=== PATIENT | male | born 1990 ===

== ENCOUNTER 2018-03-09 18:56 | Inpatient (IN) | payer OTHER ==
[2018-03-09] MEDS ORDERED: Sodium Chloride 0.9% 1,000 ML IV STA (20:29)
[2018-03-09] MEDS ORDERED: Multivitamin (MVI) 10 ML, Thiamine 100 MG, Folic Acid 1 MG in Dextrose 5%/0.45% NS 1,00... IV ONE (20:40)
--- NOTE | 2018-03-09 20:57 | ED PDOC ---
HPI: Abdomen Time Seen by Provider: 03/09/18 20:07 Chief Complaint (Nursing): GI Problem Chief Complaint (Provider): GI Problem History Per: Patient History/Exam Limitations: no limitations Onset/Duration Of Symptoms: Days Current Symptoms Are (Timing): Still Present Location Of Pain/Discomfort: Epigastric Associated Symptoms: Nausea, Vomiting Additional Complaint(s): Jagdish Troncoso is a 28 year old male with no past medical history who is presenting to the ED for evaluation of abdominal pain associated with vomiting blood, and blood in the stool onset yesterday. Patient states that yesterday and today he noted bright red blood in vomitus and red and black blood in stool yesterday. He also complains of epigastric pain and a nosebleed today which has since resolved. Patient admits to drinking alcohol yesterday but states that he has not had any today. He reports that he drinks alcohol every day and also comp lains of headache and dizziness associated with this, onset yesterday. PMD: none provided Past Medical History Reviewed: Historical Data, Nursing Documentation, Vital Signs Vital Signs: Last Vital Signs Temp 99.8 F H 03/09/18 19:34 Pulse 106 H 03/09/18 19:34 Resp 16 03/09/18 19:34 BP 148/83 03/09/18 19:34 Pulse Ox 97 03/09/18 19:34 - Medical History PMH: No Chronic Diseases - Surgical History Surgical History: No Surg Hx - Family History Family History: States: Unknown Family Hx - Social History Current smoker - smoking cessation education provided: No Alcohol: Other (drinks every day) Drugs: Denies - Home Medications Home Medications: Ambulatory Orders Medication Instructions Recorded RX: No Known Home Med 03/09/18 - Allergies Allergies/Adverse Reactions: Allergies Allergy/AdvReac Type Severity Reaction Status Date / Time No Known Allergies Allergy Verified 03/09/18 19:39 Review of Systems ROS Statement: Except As Marked, All Systems Reviewed And Found Negative Gastrointestinal: Positive for: Vomiting, Abdominal Pain, Hematochezia, Hematemesis Neurological: Positive for: Headache, Dizziness Physical Exam - Reviewed Nursing Documentation Reviewed: Yes Vital Signs Reviewed: Yes - Physical Exam Appears: Positive for: Non-toxic, No Acute Distress Head Exam: Positive for: ATRAUMATIC, NORMAL INSPECTION, NORMOCEPHALIC Skin: Positive for: Normal Color, Warm, Dry. Negative for: Rash Eye Exam: Positive for: EOMI, Normal appearance, PERRL ENT: Positive for: Normal ENT Inspection Neck: Positive for: Normal, Painless ROM, Supple Cardiovascular/Chest: Positive for: Tachycardia. Negative for: Murmur Respiratory: Positive for: Normal Breath Sounds. Negative for: Respiratory Distress Gastrointestinal/Abdominal: Positive for: Soft, Tenderness (epigastric tenderness) Back: Positive for: Normal Inspection. Negative for: L CVA Tenderness, R CVA Tenderness, Vertebral Tenderness Rectal: Positive for: Normal Exam, Stool Is Heme: (negative, no blood noted on exam). 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 Negative for: Motor/Sensory Deficits - Laboratory Results Result Diagrams: 03/09/18 23:09 03/09/18 20:49 - ECG O2 Sat by Pulse Oximetry: 97 (RA) Pulse Ox Interpretation: Normal - Critical Care Total Time (In Min): 30 Medical Decision Making Medical Decision Making: Time: 20:30 Impression: abdominal pain, vomiting blood, bloody stool Differentials: GI bleed, alcoholic gastritis, pancreatitis, possible liver cirrhosis, other forms of coagulopathy esophageal varices, Lottie-Mullins, PUD Plan: --Blood Type and Screen --CT Abdomen/Pelvis --Alcohol Serum --Ammonia --CMP --Lipase --Troponin --CBC --Coags --Dextrose IV --IV Fluids --Protonix 80 mg IVP --Zofran 4 mg IV -octreotide IV -rocepine IV 23:14 CT Abd w/ IV Findings: Lower thorax Unremarkable. Liver There is diffuse hepatic hypoattenuation compatible with fatty infiltration. There are geographic areas, which demonstrates low attenuation in the rest of the liver. There are several cysts noted in the liver. Gallbladder and bile ducts Unremarkable. Pancreas Unremarkable. No gross lesion or ductal dilatation. Spleen Unremarkable. Adrenals Unremarkable. No mass. Kidneys and ureters Unremarkable. No hydronephrosis. No solid mass. Vasculature Unremarkable. No aortic aneurysm. Bowel No obstruction. There is severe circumferential wall thickening involving duodenum with C loop consistent with duodenitis. Small fat-containing umbilical hernia is seen. Appendix Normal appendix. Peritoneum Unremarkable. No free fluid. No free air. Lymph nodes Unremarkable. No enlarged lymph nodes. Bladder Unremarkable. Reproductive Prostate gland is unremarkable. Bones No acute fracture. Other Findings None. Impression Fatty liver. Small fat-containing umbilical hernia. Evidence of duodenitis. [id number] Galvan for admission. [address] Padilla who agrees with the management. --- Scribe Attestation: Documented by Oliva Boles, acting as a scribe for To Manley MD. Provider Scribe Attestation: All medical record entries made by the Scribe were at my direction and personally dictated by me. I have reviewed the chart and agree that the record accurately reflects my personal performance of the history, physical exam, medical decision making, and the department course for this patient. I have also personally directed, reviewed, and agree with the discharge instructions and disposition. Disposition - Clinical Impression Clinical Impression: Gastrointestinal hemorrhage - Patient ED Disposition Is Patient to be Admitted: Yes Discussed With : Adalgisa Galvan Doctor Will See Patient In The: ED Counseled Patient/Family Regarding: Studies Performed, Diagnosis - Disposition Disposition Time: 23:00 Condition: CRITICAL - Pt Status Changed To: Hospital Disposition Of: Inpatient - Admit Certification Admit to Inpatient:: After my assessment, the patient will require hospitalization for at least two midnights. This is because of the severity of symptoms shown, intensity of services needed, and/or the medical risk in this patient being treated as an outpatient. - POA Present On Arrival: None
[2018-03-09 21:49] LABS: INR 1.6; PARTIAL THROMBOPLASTIN TIME 42.1 Seconds (25.6-37.1)
[2018-03-09 21:54] LABS: PROTHROMBIN TIME 17.9 Seconds (9.8-13.1)
[2018-03-09 22:00] LABS: ALB/GLOB RATIO 1.1 (1.0-2.1); ALBUMIN 5.1 g/dL (3.5-5.0); ALT/SGPT 86 U/L (21-72); AST/SGOT 282 U/L (17-59); BLOOD UREA NITROGEN 5 mg/dl (9-20); CALCIUM 9.9 mg/dL (8.4-10.2); GFR NON-AFRICAN AMERICAN > 60; LIPASE 364 U/L (23-300)
[2018-03-09] MEDS ORDERED: Iohexol 300 100 ML IJ ONE (22:07)
[2018-03-09] MEDS ORDERED: Sodium Chloride 0.9% 50 ML IV ONE (22:07)
[2018-03-09] MEDS ORDERED: Potassium CL 10 MEQ/50 ML 50 ML IVPB ONE (22:32)
[2018-03-09 23:13] LABS: BASO % 0.5 % (0.0-2.0); EOS % 0.2 % (0.0-4.0); HEMOGLOBIN 13.6 g/dL (12.0-18.0); LYMPH # 0.6 K/uL (1.0-4.3); MEAN CELL VOLUME 94.2 fl (80.0-94.0); MEAN CORPUSCULAR HEMOGLOBIN 32.3 pg (27.0-31.0); MEAN CORPUSCULAR HGB CONC 34.3 g/dL (33.0-37.0); MONO # 0.5 K/uL (0.0-0.8); MONO % 10.4 % (0.0-10.0); NEUT # 3.6 K/uL (1.8-7.0); NEUT % 76.9 % (50.0-75.0); RBC 4.19 Mil/uL (4.40-5.90); RED CELL DISTRIBUTION WIDTH 12.3 % (11.5-14.5); WHITE BLOOD COUNT 4.7 K/uL (4.8-10.8)
[2018-03-09 23:22] LABS: VENOUS BLOOD GAS BASE EXCESS 1.5 mmol/L (0.0-2.0); VENOUS BLOOD GAS PCO2 34 mmHg (40-60); VENOUS BLOOD GAS PO2 45 mm/Hg (30-55); VENOUS BLOOD PH 7.47 (7.32-7.43)
[2018-03-09] MEDS: Pantoprazole 40 MG in Sodium Chloride 0.9% 100 ML IVPB SCH (23:23)
[2018-03-09] MEDS ORDERED: Potassium CL 10 MEQ/50 ML 50 ML ONE (23:54)
[2018-03-10 00:37] LABS: MEAN PLATELET VOLUME 8.3 fl (7.2-11.7)
--- NOTE | 2018-03-10 01:01 | CP.PCM.HP ---
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 Last vomiting was yesterday evening. Patient reports he had some nose bleed today but not currently. Reports some dizziness but denies LOC or blurry vision. Denies any abdominal pain, chest pain, dyspnea, headache, fever or chills. Patient reports he drinks 4-6 glasses ( ~3-4 oz in each glass) of Whiskey every weekends and sometimes 1-2 glasses during weekdays for the last 7 years. Denies any taking any NSAIDS or aspirin. Denies any hx GI bleed or liver issues in the past. ROS: all 12 systems reviewed and negative except as mentioned in HPI PMD: none PMHx: alcohol use disorder PSHx: denies Social hx: significant EtOH use, denies smoking cigarettes or illicit drug uses Family hx: Denies any family hx GI cancer. Allergies: NKDA Medications: none cash person: Tran Bah (friend): [phone] Present on Admission - Present on Admission Any Indicators Present on Admission: No Review of Systems - Review of Systems Review of Systems: ROS: all 12 systems reviewed and negative except as mentioned in HPI Past Patient History - Past Social History Alcohol: Other (drinks every day) Drugs: Denies - PSYCHIATRIC Hx Substance Use: No - SURGICAL HISTORY Hx Surgeries: No Meds Allergies/Adverse Reactions: Allergies Allergy/AdvReac Type Severity Reaction Status Date / Time No Known Allergies Allergy Verified 03/09/18 19:39 Physical Exam - Constitutional Appears: Non-toxic, No Acute Distress - Head Exam Head Exam: ATRAUMATIC, NORMAL INSPECTION, NORMOCEPHALIC - Eye Exam Eye Exam: EOMI, Normal appearance. absent: Scleral icterus - ENT Exam ENT Exam: Mucous Membranes Dry (with dried blood staining the teeth), Normal Oropharynx Additional comments: Nostril: Dried blood in B/L nostril, no active bleeding seen. Ears: clear ear canal B/L, TM normal - Neck Exam Neck exam: Positive for: Full Rom, Normal Inspection - Respiratory Exam Respiratory Exam: Clear to Auscultation Bilateral, NORMAL BREATHING PATTERN. absent: Rhonchi, Wheezes - Cardiovascular Exam Cardiovascular Exam: REGULAR RHYTHM, +S1, +S2 - GI/Abdominal Exam GI & Abdominal Exam: Normal Bowel Sounds, Soft, Tenderness (Mild epigastric tenderness, No rebound tenderness or guarding.). absent: Guarding, Rebound - Extremities Exam Extremities exam: Positive for: normal capillary refill, pedal pulses present. Negative for: calf tenderness, pedal edema - Neurological Exam Neurological exam: Alert, Oriented x3 - Psychiatric Exam Psychiatric exam: Normal Affect, Normal Mood - Skin Additional comments: petechiae seen on abdomen and B/L lower extremities. Results - Vital Signs Recent Vital Signs: Last Vital Signs Temp 98.8 F 03/10/18 00:44 Pulse 96 H 03/10/18 00:44 Resp 18 03/10/18 00:44 BP 138/83 03/10/18 00:44 Pulse Ox 100 03/10/18 00:44 - Labs Result Diagrams: 03/09/18 23:09 03/09/18 20:49 Labs: Laboratory Results - last 24 hr 03/09/18 03/09/18 03/09/18 20:49 20:49 20:49 WBC RBC Hgb Hct MCV MCH MCHC RDW Plt Count MPV Neut % (Auto) Lymph % (Auto) [place] % (Auto) Eos % (Auto) Baso % (Auto) Neut # (Auto) Lymph # (Auto) [place] # (Auto) Eos # (Auto) Baso # (Auto) PT 17.9 H INR 1.6 APTT 42.1 H pO2 VBG pH VBG pCO2 VBG HCO3 VBG Total CO2 VBG O2 Sat (Calc) VBG Base Excess VBG Potassium Glucose Lactate FiO2 Sodium 137 Potassium 3.1 L Chloride 87 L Carbon Dioxide 23 Anion Gap 30 H BUN 5 L Creatinine 0.5 L Est GFR ( Amer) > 60 Est GFR (Non-Af Amer) > 60 Random Glucose 129 H Calcium 9.9 Total Bilirubin 2.0 H AST 282 H ALT 86 H Alkaline Phosphatase 213 H Ammonia Troponin I 0.0140 Total Protein 9.8 H Albumin 5.1 H Globulin 4.7 H Albumin/Globulin Ratio 1.1 Lipase 364 H Venous Blood Potassium Stool Occult Blood Alcohol, Quantitative < 10 Blood Type O POSITIVE Blood Type Confirm Antibody Screen Negative BBK History Checked No verified bt 03/09/18 03/09/18 03/09/18 21:00 21:19 21:44 WBC RBC Hgb Hct MCV MCH MCHC RDW Plt Count MPV Neut % (Auto) Lymph % (Auto) [place] % (Auto) Eos % (Auto) Baso % (Auto) Neut # (Auto) Lymph # (Auto) [place] # (Auto) Eos # (Auto) Baso # (Auto) PT INR APTT pO2 VBG pH VBG pCO2 VBG HCO3 VBG Total CO2 VBG O2 Sat (Calc) VBG Base Excess VBG Potassium Glucose Lactate FiO2 Sodium Potassium Chloride Carbon Dioxide Anion Gap BUN Creatinine Est GFR ( Amer) Est GFR (Non-Af Amer) Random Glucose Calcium Total Bilirubin AST ALT Alkaline Phosphatase Ammonia 65 H Troponin I Total Protein Albumin Globulin Albumin/Globulin Ratio Lipase Venous Blood Potassium Stool Occult Blood Positive H Alcohol, Quantitative Blood Type Blood Type Confirm O POSITIVE Antibody Screen BBK History Checked 03/09/18 03/09/18 23:09 23:17 WBC 4.7 L RBC 4.19 L Hgb 13.6 Hct 39.5 MCV 94.2 H MCH 32.3 H MCHC 34.3 RDW 12.3 Plt Count 70 L MPV 8.3 Neut % (Auto) 76.9 H Lymph % (Auto) 12.0 L Den[place] % (Auto) 10.4 H Eos % (Auto) 0.2 Baso % (Auto) 0.5 Neut # (Auto) 3.6 Lymph # (Auto) 0.6 L [place] # (Auto) 0.5 Eos # (Auto) 0.0 Baso # (Auto) 0.0 PT INR APTT pO2 45 VBG pH 7.47 H VBG pCO2 34 L VBG HCO3 25.7 VBG Total CO2 25.7 VBG O2 Sat (Calc) 85.3 H VBG Base Excess 1.5 VBG Potassium 2.9 L Glucose 126 H Lactate 1.5 FiO2 21.0 Sodium 133.0 Potassium Chloride 92.0 L Carbon Dioxide Anion Gap BUN Creatinine Est GFR ( Amer) Est GFR (Non-Af Amer) Random Glucose Calcium Total Bilirubin AST ALT Alkaline Phosphatase Ammonia Troponin I Total Protein Albumin Globulin Albumin/Globulin Ratio Lipase Venous Blood Potassium 2.9 L Stool Occult Blood Alcohol, Quantitative Blood Type Blood Type Confirm Antibody Screen BBK History Checked - Imaging and Cardiology CT scan - abdomen Additional comment: CT Abd w/ IV Findings: Lower thorax Unremarkable. Liver There is diffuse hepatic hypoattenuation compatible with fatty infiltration. There are geographic areas, which demonstrates low attenuation in the rest of the liver. There are several cysts noted in the liver. Gallbladder and bile ducts Unremarkable. Pancreas Unremarkable. No gross lesion or ductal dilatation. Spleen Unremarkable. Adrenals Unremarkable. No mass. Kidneys and ureters Unremarkable. No hydronephrosis. No solid mass. Vasculature Unremarkable. No aortic aneurysm. Bowel No obstruction. There is severe circumferential wall thickening involving duodenum with C loop consistent with duodenitis. Small fat-containing umbilical hernia is seen. Appendix Normal appendix. Peritoneum Unremarkable. No free fluid. No free air. Lymph nodes Unremarkable. No enlarged lymph nodes. Bladder Unremarkable. Reproductive Prostate gland is unremarkable. Bones No acute fracture. Other Findings None. Impression Fatty liver. Small fat-containing umbilical hernia. Evidence of duodenitis. Assessment & Plan - Assessment and Plan (Free Text) Assessment: 28 year old German speaking male with PMHx of alcohol use disorder presented to [facility] ED with complaints of 7-10 episodes of bloody (bright red blood) emesis associated with one episode of bloody stool mixed with dark and bright red blood yesterday. Patient reports +nose bleed and dizziness started today. Patient is admitted for upper GI bleed and duodenitis. Plan: Upper GI bleed with duodenitis -Admit to ICU -Slight tachycardia otherwise stable vitals -CT A/P showed lower thorax unremarkable. There is severe circumferential wall thickening involving duodenum with C loop consistent with duodenitis. -GI consult: Dr. Padilla -s/p Protonix 80 mg IVPB, Octreotide 50 mcg IV and Cefriaxone 1 gm IPVB -Continuous infusion of protonix @8mg/hr -c/w Octreotide infusion @50 mcg/hour -IVFs LR @125 cc/hr -H&H 13.6/39.5 -Monitor symptoms -Cel[place] Bleeding Score: 2 points -f/u AM labs Elevated liver enzymes -Likely secondary to alcohol use disorder -F/u gallbladder US -f/u hepatitis panel Hyperammonemia -Mild, ammonia level 65 -AAO x3 -Likely secondary to GI bleed -f/u GI recommendation Thrombocytopenia -Platelet 70 -f/u AM CBC DVT prophylaxis -SCDs Diet -NPO Patient seen, examined and plan d/w with Dr. Cole Chavez, pgy-2
[2018-03-10] MEDS ORDERED: cefTRIAXone (Rocephin) 1 gm Inj ONE (01:19)
[2018-03-10 01:25] VITALS: BMI 28.2
[2018-03-10] MEDS: Lactated Ringer's 1,000 ML IV SCH ×2 (02:04→17:18)
[2018-03-10] MEDS: Pantoprazole 40 MG in Sodium Chloride 0.9% 100 ML IVPB SCH ×4 (02:44→21:37)
[2018-03-10 05:29] LABS: HEMOGLOBIN 13.2 g/dL (12.0-18.0); MEAN CELL VOLUME 94.9 fl (80.0-94.0); MEAN CORPUSCULAR HEMOGLOBIN 32.2 pg (27.0-31.0); MEAN CORPUSCULAR HGB CONC 33.9 g/dL (33.0-37.0); RBC 4.09 Mil/uL (4.40-5.90); RED CELL DISTRIBUTION WIDTH 12.6 % (11.5-14.5); WHITE BLOOD COUNT 3.3 K/uL (4.8-10.8)
[2018-03-10 05:51] LABS: BLOOD UREA NITROGEN 3 mg/dl (9-20); CALCIUM 8.4 mg/dL (8.4-10.2); GFR NON-AFRICAN AMERICAN > 60
--- NOTE | 2018-03-10 07:55 | CARD ---
APPROVED REPORT Date of service: 03/09/2018 EKG Measurement Heart [id number] ID [id number] <Conclusion> Sinus tachycardia Prolonged QT Abnormal ECG
[2018-03-10] MEDS: Potassium Chloride 20 mEq 100 ML IVPB SCH ×2 (08:58→10:37)
--- NOTE | 2018-03-10 11:25 | CP.CCUPN ---
<Di Figueroa - Last Filed: 03/10/18 12:19> CCU Subjective - Physician Review Subjective (Free Text): 03/10/18 11:32 This is 28 y/o M with PMH of alcohol use disorder admitted to ICU for evaluation and treatment of upper GI bleed. - Patient was seen and examined this morning at bedside, NAD. Patient reports no pain, bright red blood was seen around mouth. denies any nausea, vomiting or diarrhea this morning. VS: Afebrile, HR 100s, BP stable 123/63, Spo2 >95% RA, RR 15 ROS: No other pertinent negs or positives on 10+ system review. EXAM: HEENT: no icterus, no gaze preference, Pupils equal and reactive b/l, bright red blood was seen around mouth NECK: No JVD visible, supple, carotids equal upstroke bilat/no bruit CHEST:CTBL HEART: S1 and S2, RRR, No JVD ABD: soft/NT/ND, Hyperactive BS, no guarding, no organomegaly EXT: no LE edema, no calf tenderness or palpable cords, distal pulses intact and symmetrical NEURO: no focal motor weakness, radiator specialist II-XII grossly intact SKIN: no rashes, warm and dry LABS: WBC: 3.3 H/H: 13.2/38.8 Plt: 27 PT/PTT/INR: 17.9/42.1/1.6 CMP: Significant for K+ 3.2, Cl 95 AST/ALT/ALP: 282/86/213 Ammonia 65 Lipase 364 FOBT: + stool VBG: Reviewed CT Abd/Pelvis: Fatty liver, Small fat-containing umbilical hernia, Evidence of duodenitis. IMPRESSION/MAJOR PROBLEMS Upper GI bleed, active Thrombocytopenia Transaminitis Elevated Coag Elevated Lipase Elevated ammonia, not encephalopathic Alcohol use disorder Hypokalemia Plan: - Transfuse 1 U plt and 2 U FFP, CBC and Coag in am - Start Thiamine, Folic acid, and Lactulose - C/w Protonix, IVF, NPO and Zofran PRN - Replete potassium as needed, Follow up Mg and Phos , elevated lipase possibly due to vomiting, CMP in AM - Monitor mental status, ammonia in am - Follow up Abdo U/S to r/o liver pathology, f/u Hepatitis panel - WA protocol - Follow up GI recommendations - Monitor VS Case discussed with ICU Attending 03/10/18 12:19 CCU Objective - Vital Signs / Intake & Output Vital Signs (Last 4 hours): Vital Signs Temp Pulse Resp BP Pulse Ox 03/10/18 10:00 101 H 15 123/67 96 03/10/18 08:00 98.4 F 95 H 15 127/67 95 Intake and Output (Last 8hrs): Intake & Output 03/09/18 03/10/18 03/10/18 22:59 06:59 14:59 Intake Total 950 475 Output Total 150 650 Balance 800 -175 Weight 175 lb 176 lb 3.2 oz Intake: IV 780 375 Intake, Piggyback 110 100 Oral 0 TPN/PPN 60 Output: Urine 150 650 Urine, Voided 150 650 Other: # Voids Urine, Voided 1 # Bowel Movements 0 - Medications Active Medications: Active Medications Generic Name Dose Route Start Last Admin Trade Name Freq PRN Reason Stop Dose Admin Pantoprazole Sodium 40 mg/ 100 mls @ 20 mls/hr 03/09/18 22:30 03/10/18 08:07 Sodium Chloride IVPB 20 mls/hr 5XD TITA Administration 8 MG/HR Octreotide Acetate 1,250 mcg/ 252.5 mls @ 10.1 mls/hr 03/09/18 23:30 03/10/18 02:05 Sodium Chloride IV 10.1 mls/hr .Q24H TITA Administration 50 MCG/HR Lactated Ringer's 1,000 mls @ 125 mls/hr 03/10/18 01:00 03/10/18 02:04 Lactated Ringer's IV 125 mls/hr .Q8H TITA Administration Potassium Chloride 100 mls @ 50 mls/hr 03/10/18 08:00 03/10/18 10:37 Potassium Chloride 20 Meq/100 Ml IVPB 03/10/18 11:59 50 mls/hr Q2 TITA Administration Ondansetron HCl 4 mg 03/10/18 00:53 Zofran Inj IVP Q6H PRN Nausea/Vomiting - Patient Studies Lab Studies: Lab Studies 03/10/18 03/10/18 03/09/18 Range/Units 04:20 04:20 23:17 WBC 3.3 L (4.8-10.8) K/uL RBC 4.09 L (4.40-5.90) Mil/uL Hgb 13.2 (12.0-18.0) g/dL Hct 38.8 (35.0-51.0) % MCV 94.9 H (80.0-94.0) fl MCH 32.2 H (27.0-31.0) pg MCHC 33.9 (33.0-37.0) g/dL RDW 12.6 (11.5-14.5) % Plt Count 23 L* D (130-400) K/uL MPV (7.2-11.7) fl Neut % (Auto) (50.0-75.0) % Lymph % (Auto) (20.0-40.0) % Coleman % (Auto) (0.0-10.0) % Eos % (Auto) (0.0-4.0) % Baso % (Auto) (0.0-2.0) % Neut # (Auto) (1.8-7.0) K/uL Lymph # (Auto) (1.0-4.3) K/uL Coleman # (Auto) (0.0-0.8) K/uL Eos # (Auto) (0.0-0.7) K/uL Baso # (Auto) (0.0-0.2) K/uL PT (9.8-13.1) Seconds INR APTT (25.6-37.1) Seconds pO2 45 (30-55) mm/Hg VBG pH 7.47 H (7.32-7.43) VBG pCO2 34 L (40-60) mmHg VBG HCO3 25.7 mmol/L VBG Total CO2 25.7 (22-28) mmol/L VBG O2 Sat (Calc) 85.3 H (40-65) % VBG Base Excess 1.5 (0.0-2.0) mmol/L VBG Potassium 2.9 L (3.6-5.2) mmol/L Glucose 126 H (75-110) mg/dL Lactate 1.5 (0.7-2.1) mmol/L FiO2 21.0 % Sodium 136 133.0 (132-148) mmol/l Potassium 3.2 L (3.6-5.0) MMOL/L Chloride 95 L 92.0 L (98-107) mmol/L Carbon Dioxide 24 (22-30) mmol/L Anion Gap 20 (10-20) BUN 3 L (9-20) mg/dl Creatinine 0.5 L (0.8-1.5) mg/dl Est GFR ( Amer) > 60 Est GFR (Non-Af Amer) > 60 Random Glucose 175 H (75-110) mg/dL Calcium 8.4 (8.4-10.2) mg/dL Total Bilirubin (0.2-1.3) mg/dl AST (17-59) U/L ALT (21-72) U/L Alkaline Phosphatase (38-126) U/L Ammonia (16-60) umo/L Troponin I (0.00-0.120) ng/mL Total Protein (6.3-8.2) G/DL Albumin (3.5-5.0) g/dL Globulin (2.2-3.9) gm/dL Albumin/Globulin Ratio (1.0-2.1) Lipase (23-300) U/L Venous Blood Potassium 2.9 L (3.6-5.2) mmol/L Stool Occult Blood (NEGATIVE) Alcohol, Quantitative (0-10) mg/dl Blood Type Blood Type Confirm Antibody Screen BBK History Checked 03/09/18 03/09/18 03/09/18 Range/Units 23:09 21:44 21:19 WBC 4.7 L (4.8-10.8) K/uL RBC 4.19 L (4.40-5.90) Mil/uL Hgb 13.6 (12.0-18.0) g/dL Hct 39.5 (35.0-51.0) % MCV 94.2 H (80.0-94.0) fl MCH 32.3 H (27.0-31.0) pg MCHC 34.3 (33.0-37.0) g/dL RDW 12.3 (11.5-14.5) % Plt Count 70 L (130-400) K/uL MPV 8.3 (7.2-11.7) fl Neut % (Auto) 76.9 H (50.0-75.0) % Lymph % (Auto) 12.0 L (20.0-40.0) % Coleman % (Auto) 10.4 H (0.0-10.0) % Eos % (Auto) 0.2 (0.0-4.0) % Baso % (Auto) 0.5 (0.0-2.0) % Neut # (Auto) 3.6 (1.8-7.0) K/uL Lymph # (Auto) 0.6 L (1.0-4.3) K/uL Coleman # (Auto) 0.5 (0.0-0.8) K/uL Eos # (Auto) 0.0 (0.0-0.7) K/uL Baso # (Auto) 0.0 (0.0-0.2) K/uL PT (9.8-13.1) Seconds INR APTT (25.6-37.1) Seconds pO2 (30-55) mm/Hg VBG pH (7.32-7.43) VBG pCO2 (40-60) mmHg VBG HCO3 mmol/L VBG Total CO2 (22-28) mmol/L VBG O2 Sat (Calc) (40-65) % VBG Base Excess (0.0-2.0) mmol/L VBG Potassium (3.6-5.2) mmol/L Glucose (75-110) mg/dL Lactate (0.7-2.1) mmol/L FiO2 % Sodium (132-148) mmol/l Potassium (3.6-5.0) MMOL/L Chloride (98-107) mmol/L Carbon Dioxide (22-30) mmol/L Anion Gap (10-20) BUN (9-20) mg/dl Creatinine (0.8-1.5) mg/dl Est GFR ( Amer) Est GFR (Non-Af Amer) Random Glucose (75-110) mg/dL Calcium (8.4-10.2) mg/dL Total Bilirubin (0.2-1.3) mg/dl AST (17-59) U/L ALT (21-72) U/L Alkaline Phosphatase (38-126) U/L Ammonia 65 H (16-60) umo/L Troponin I (0.00-0.120) ng/mL Total Protein (6.3-8.2) G/DL Albumin (3.5-5.0) g/dL Globulin (2.2-3.9) gm/dL Albumin/Globulin Ratio (1.0-2.1) Lipase (23-300) U/L Venous Blood Potassium (3.6-5.2) mmol/L Stool Occult Blood (NEGATIVE) Alcohol, Quantitative (0-10) mg/dl Blood Type Blood Type Confirm O POSITIVE Antibody Screen BBK History Checked 03/09/18 03/09/18 03/09/18 Range/Units 21:00 20:49 20:49 WBC (4.8-10.8) K/uL RBC (4.40-5.90) Mil/uL Hgb (12.0-18.0) g/dL Hct (35.0-51.0) % MCV (80.0-94.0) fl MCH (27.0-31.0) pg MCHC (33.0-37.0) g/dL RDW (11.5-14.5) % Plt Count (130-400) K/uL MPV (7.2-11.7) fl Neut % (Auto) (50.0-75.0) % Lymph % (Auto) (20.0-40.0) % Coleman % (Auto) (0.0-10.0) % Eos % (Auto) (0.0-4.0) % Baso % (Auto) (0.0-2.0) % Neut # (Auto) (1.8-7.0) K/uL Lymph # (Auto) (1.0-4.3) K/uL Coleman # (Auto) (0.0-0.8) K/uL Eos # (Auto) (0.0-0.7) K/uL Baso # (Auto) (0.0-0.2) K/uL PT 17.9 H (9.8-13.1) Seconds INR 1.6 APTT 42.1 H (25.6-37.1) Seconds pO2 (30-55) mm/Hg VBG pH (7.32-7.43) VBG pCO2 (40-60) mmHg VBG HCO3 mmol/L VBG Total CO2 (22-28) mmol/L VBG O2 Sat (Calc) (40-65) % VBG Base Excess (0.0-2.0) mmol/L VBG Potassium (3.6-5.2) mmol/L Glucose (75-110) mg/dL Lactate (0.7-2.1) mmol/L FiO2 % Sodium (132-148) mmol/l Potassium (3.6-5.0) MMOL/L Chloride (98-107) mmol/L Carbon Dioxide (22-30) mmol/L Anion Gap (10-20) BUN (9-20) mg/dl Creatinine (0.8-1.5) mg/dl Est GFR ( Amer) Est GFR (Non-Af Amer) Random Glucose (75-110) mg/dL Calcium (8.4-10.2) mg/dL Total Bilirubin (0.2-1.3) mg/dl AST (17-59) U/L ALT (21-72) U/L Alkaline Phosphatase (38-126) U/L Ammonia (16-60) umo/L Troponin I (0.00-0.120) ng/mL Total Protein (6.3-8.2) G/DL Albumin (3.5-5.0) g/dL Globulin (2.2-3.9) gm/dL Albumin/Globulin Ratio (1.0-2.1) Lipase (23-300) U/L Venous Blood Potassium (3.6-5.2) mmol/L Stool Occult Blood Positive H (NEGATIVE) Alcohol, Quantitative (0-10) mg/dl Blood Type O POSITIVE Blood Type Confirm Antibody Screen Negative BBK History Checked No verified bt 03/09/18 Range/Units 20:49 WBC (4.8-10.8) K/uL RBC (4.40-5.90) Mil/uL Hgb (12.0-18.0) g/dL Hct (35.0-51.0) % MCV (80.0-94.0) fl MCH (27.0-31.0) pg MCHC (33.0-37.0) g/dL RDW (11.5-14.5) % Plt Count (130-400) K/uL MPV (7.2-11.7) fl Neut % (Auto) (50.0-75.0) % Lymph % (Auto) (20.0-40.0) % Coleman % (Auto) (0.0-10.0) % Eos % (Auto) (0.0-4.0) % Baso % (Auto) (0.0-2.0) % Neut # (Auto) (1.8-7.0) K/uL Lymph # (Auto) (1.0-4.3) K/uL Coleman # (Auto) (0.0-0.8) K/uL Eos # (Auto) (0.0-0.7) K/uL Baso # (Auto) (0.0-0.2) K/uL PT (9.8-13.1) Seconds INR APTT (25.6-37.1) Seconds pO2 (30-55) mm/Hg VBG pH (7.32-7.43) VBG pCO2 (40-60) mmHg VBG HCO3 mmol/L VBG Total CO2 (22-28) mmol/L VBG O2 Sat (Calc) (40-65) % VBG Base Excess (0.0-2.0) mmol/L VBG Potassium (3.6-5.2) mmol/L Glucose (75-110) mg/dL Lactate (0.7-2.1) mmol/L FiO2 % Sodium 137 (132-148) mmol/l Potassium 3.1 L (3.6-5.0) MMOL/L Chloride 87 L (98-107) mmol/L Carbon Dioxide 23 (22-30) mmol/L Anion Gap 30 H (10-20) BUN 5 L (9-20) mg/dl Creatinine 0.5 L (0.8-1.5) mg/dl Est GFR ( Amer) > 60 Est GFR (Non-Af Amer) > 60 Random Glucose 129 H (75-110) mg/dL Calcium 9.9 (8.4-10.2) mg/dL Total Bilirubin 2.0 H (0.2-1.3) mg/dl AST 282 H (17-59) U/L ALT 86 H (21-72) U/L Alkaline Phosphatase 213 H (38-126) U/L Ammonia (16-60) umo/L Troponin I 0.0140 (0.00-0.120) ng/mL Total Protein 9.8 H (6.3-8.2) G/DL Albumin 5.1 H (3.5-5.0) g/dL Globulin 4.7 H (2.2-3.9) gm/dL Albumin/Globulin Ratio 1.1 (1.0-2.1) Lipase 364 H (23-300) U/L Venous Blood Potassium (3.6-5.2) mmol/L Stool Occult Blood (NEGATIVE) Alcohol, Quantitative < 10 (0-10) mg/dl Blood Type Blood Type Confirm Antibody Screen BBK History Checked Laboratory Results - last 24 hr 03/09/18 03/09/18 03/09/18 20:49 20:49 20:49 WBC RBC Hgb Hct MCV MCH MCHC RDW Plt Count MPV Neut % (Auto) Lymph % (Auto) Coleman % (Auto) Eos % (Auto) Baso % (Auto) Neut # (Auto) Lymph # (Auto) Coleman # (Auto) Eos # (Auto) Baso # (Auto) PT 17.9 H INR 1.6 APTT 42.1 H pO2 VBG pH VBG pCO2 VBG HCO3 VBG Total CO2 VBG O2 Sat (Calc) VBG Base Excess VBG Potassium Glucose Lactate FiO2 Sodium 137 Potassium 3.1 L Chloride 87 L Carbon Dioxide 23 Anion Gap 30 H BUN 5 L Creatinine 0.5 L Est GFR ( Amer) > 60 Est GFR (Non-Af Amer) > 60 Random Glucose 129 H Calcium 9.9 Total Bilirubin 2.0 H AST 282 H ALT 86 H Alkaline Phosphatase 213 H Ammonia Troponin I 0.0140 Total Protein 9.8 H Albumin 5.1 H Globulin 4.7 H Albumin/Globulin Ratio 1.1 Lipase 364 H Venous Blood Potassium Stool Occult Blood Alcohol, Quantitative < 10 Blood Type O POSITIVE Blood Type Confirm Antibody Screen Negative BBK History Checked No verified bt 03/09/18 03/09/18 03/09/18 21:00 21:19 21:44 WBC RBC Hgb Hct MCV MCH MCHC RDW Plt Count MPV Neut % (Auto) Lymph % (Auto) Coleman % (Auto) Eos % (Auto) Baso % (Auto) Neut # (Auto) Lymph # (Auto) Coleman # (Auto) Eos # (Auto) Baso # (Auto) PT INR APTT pO2 VBG pH VBG pCO2 VBG HCO3 VBG Total CO2 VBG O2 Sat (Calc) VBG Base Excess VBG Potassium Glucose Lactate FiO2 Sodium Potassium Chloride Carbon Dioxide Anion Gap BUN Creatinine Est GFR ( Amer) Est GFR (Non-Af Amer) Random Glucose Calcium Total Bilirubin AST ALT Alkaline Phosphatase Ammonia 65 H Troponin I Total Protein Albumin Globulin Albumin/Globulin Ratio Lipase Venous Blood Potassium Stool Occult Blood Positive H Alcohol, Quantitative Blood Type Blood Type Confirm O POSITIVE Antibody Screen BBK History Checked 03/09/18 03/09/18 03/10/18 23:09 23:17 04:20 WBC 4.7 L 3.3 L RBC 4.19 L 4.09 L Hgb 13.6 13.2 Hct 39.5 38.8 MCV 94.2 H 94.9 H MCH 32.3 H 32.2 H MCHC 34.3 33.9 RDW 12.3 12.6 Plt Count 70 L 23 L* D MPV 8.3 Neut % (Auto) 76.9 H Lymph % (Auto) 12.0 L Coleman % (Auto) 10.4 H Eos % (Auto) 0.2 Baso % (Auto) 0.5 Neut # (Auto) 3.6 Lymph # (Auto) 0.6 L Coleman # (Auto) 0.5 Eos # (Auto) 0.0 Baso # (Auto) 0.0 PT INR APTT pO2 45 VBG pH 7.47 H VBG pCO2 34 L VBG HCO3 25.7 VBG Total CO2 25.7 VBG O2 Sat (Calc) 85.3 H VBG Base Excess 1.5 VBG Potassium 2.9 L Glucose 126 H Lactate 1.5 FiO2 21.0 Sodium 133.0 Potassium Chloride 92.0 L Carbon Dioxide Anion Gap BUN Creatinine Est GFR ( Amer) Est GFR (Non-Af Amer) Random Glucose Calcium Total Bilirubin AST ALT Alkaline Phosphatase Ammonia Troponin I Total Protein Albumin Globulin Albumin/Globulin Ratio Lipase Venous Blood Potassium 2.9 L Stool Occult Blood Alcohol, Quantitative Blood Type Blood Type Confirm Antibody Screen BBK History Checked 03/10/18 04:20 WBC RBC Hgb Hct MCV MCH MCHC RDW Plt Count MPV Neut % (Auto) Lymph % (Auto) Coleman % (Auto) Eos % (Auto) Baso % (Auto) Neut # (Auto) Lymph # (Auto) Coleman # (Auto) Eos # (Auto) Baso # (Auto) PT INR APTT pO2 VBG pH VBG pCO2 VBG HCO3 VBG Total CO2 VBG O2 Sat (Calc) VBG Base Excess VBG Potassium Glucose Lactate FiO2 Sodium 136 Potassium 3.2 L Chloride 95 L Carbon Dioxide 24 Anion Gap 20 BUN 3 L Creatinine 0.5 L Est GFR ( Amer) > 60 Est GFR (Non-Af Amer) > 60 Random Glucose 175 H Calcium 8.4 Total Bilirubin AST ALT Alkaline Phosphatase Ammonia Troponin I Total Protein Albumin Globulin Albumin/Globulin Ratio Lipase Venous Blood Potassium Stool Occult Blood Alcohol, Quantitative Blood Type Blood Type Confirm Antibody Screen BBK History Checked Critical Care Progress Note - Nutrition Nutrition: Nutrition Category Date Time Status NPO Diet [DIET] Diets 03/09/18 Breakfast Active <Ray Pool - Last Filed: 03/10/18 14:13> CCU Subjective - Physician Review Subjective (Free Text): Attestation: Patient seen and examined at the bedside with Resident Dr. Roseline Figueroa; and I agree with his outline of plans and management documented above and below, reflecting my review of all applicable clinical data, and participation in the care of the patient throughout the day in ICU; today, March 10, 2018.
--- NOTE | 2018-03-10 11:49 | CT ---
Date of service: 03/09/2018 PROCEDURE: CT Abdomen and Pelvis with contrast HISTORY: epigastric pain vomiting COMPARISON: None. TECHNIQUE: Contrast dose: 95 mL Omnipaque 300 Radiation dose: Total exam DLP = 579.04 mGy-cm. This CT exam was performed using one or more of the following dose reduction techniques: Automated exposure control, adjustment of the mA and/or kV according to patient size, and/or use of iterative reconstruction technique. FINDINGS: LOWER THORAX: Unremarkable. LIVER: Mild hepatomegaly. Diffusely diminished attenuation of the liver consistent with fatty infiltration. Circumscribed but irregularly-shaped area of decreased attenuation adjacent to the gallbladder fossa measuring roughly 3.8 x 2.2 cm but difficult to measure due to its irregular shape. This may represent additional focal fatty infiltration. There is also a low-attenuation rounded lesion 1.3 cm in diameter in the dome of the right hepatic lobe. Nonspecific. No biliary dilatation. Smooth contour. GALLBLADDER AND BILE DUCTS: Unremarkable. PANCREAS: Unremarkable. No gross lesion or ductal dilatation. SPLEEN: Unremarkable. ADRENALS: Unremarkable. No mass. KIDNEYS AND URETERS: Unremarkable. No hydronephrosis. No solid mass. VASCULATURE: Unremarkable. No aortic aneurysm. No abdominal aortic atherosclerotic calcification. There are probable small varices seen adjacent to the gastric cardia and also suspected varices in the right subhepatic space/paracolic gutter region. These are curvilinear enhancing structures. The findings are suspicious for portal hypertension with varices. There are no retroperitoneal varices identified. No evidence of esophageal varices on this examination. BOWEL: Nonspecific circumferential mural thickening of the ascending colon and hepatic flexure consistent with nonspecific colitis. The remainder of the colon shows no evidence of mural thickening. Scattered colonic diverticula. No evidence of diverticulitis. No bowel obstruction. APPENDIX: Normal appendix. PERITONEUM: Unremarkable. No free fluid. No free air. LYMPH NODES: Shotty subcentimeter retroperitoneal lymph nodes, nonspecific. BLADDER: Unremarkable. REPRODUCTIVE: Normal prostate BONES: No acute fracture. OTHER FINDINGS: None. IMPRESSION: Hepatomegaly. Fatty infiltration of the liver. Areas of likely focal fatty infiltration superimposed upon generalized fatty infiltration, with circumscribed borders and traversing vessels identified in regions of this suspected focal fatty infiltration. This could be evaluated with magnetic resonance imaging if desired. Additional nonspecific low-attenuation lesion in the dome of the right hepatic lobe, 1.3 cm. Again, this could represent focal fatty infiltration. No biliary dilatation. Suspected varices adjacent to the gastric cardia and also in the right pericolic gutter region. This raises suspicion of portal hypertension. No evidence of portal venous thrombosis. Nonspecific colitis involving the ascending colon and hepatic flexure. No other significant abnormality. The preliminary findings for this examination were reported by [facility] at 11:14 p.m. on 03/09/2018. There is discordance of this report with the preliminary findings. The presence of suspected varices was not described in the preliminary report of this examination. Nonspecific colitis involving the ascending colon and hepatic flexure was not described in the preliminary report of this examination. Mural thickening of the duodenum was described in the preliminary report of this examination. This is not felt to be present in this examination.
[2018-03-10] MEDS ORDERED: Thiamine 100 mg/ml Inj IM ONE (11:55)
[2018-03-10 12:29] LABS: HEPATITIS B SURFACE AG Negative (NEGATIVE)
[2018-03-10 12:35] LABS: HEPATITIS A IGM NEGATIVE (NEGATIVE); HEPATITIS B CORE AB NEGATIVE (NEGATIVE)
[2018-03-10 12:46] LABS: HEPATITIS C ANTIBODY NEGATIVE (NEGATIVE)
[2018-03-10 17:03] LABS: BASO % 0.4 % (0.0-2.0); EOS % 0.9 % (0.0-4.0); LYMPH # 0.5 K/uL (1.0-4.3); LYMPH % 14.6 % (20.0-40.0); MEAN CELL VOLUME 94.5 fl (80.0-94.0); MEAN CORPUSCULAR HEMOGLOBIN 32.1 pg (27.0-31.0); MEAN CORPUSCULAR HGB CONC 33.9 g/dL (33.0-37.0); MEAN PLATELET VOLUME 8.9 fl (7.2-11.7); MONO # 0.3 K/uL (0.0-0.8); MONO % 8.4 % (0.0-10.0); NEUT # 2.7 K/uL (1.8-7.0); NEUT % 75.7 % (50.0-75.0); NRBC % 0.1 % (0.0-0.0); RBC 4.06 Mil/uL (4.40-5.90); RED CELL DISTRIBUTION WIDTH 12.5 % (11.5-14.5); WHITE BLOOD COUNT 3.6 K/uL (4.8-10.8)
--- NOTE | 2018-03-10 17:50 | US ---
Date of service: 03/10/2018 HISTORY: cirrhosis COMPARISON: March 09, 2018. CT abdomen and pelvis. TECHNIQUE: Sonographic evaluation of the abdomen. FINDINGS: LIVER: Measures 20.8 cm. Hepatopedal blood flow. Fatty infiltration manifest ultrasonographically as increased echogenicity of the liver parenchyma. No mass. No intrahepatic bile duct dilatation. Findings identified on recent CT scan are not apparent on the current study. GALLBLADDER: Unremarkable. No gallstones. Trace pericholecystic fluid identified. COMMON BILE DUCT: Measures 5.7 mm. No stones. No dilatation. PANCREAS: Unremarkable as visualized. No mass. No ductal dilatation. RIGHT KIDNEY: Measures 5.2 x 12.8cm. Normal echogenicity. No calculus, mass, or hydronephrosis. LEFT KIDNEY: Measures 6.4 x 13.2cm. Normal echogenicity. No calculus, mass, or hydronephrosis. SPLEEN: Normal in size and contour. No mass. AORTA: No aneurysmal dilatation. IVC: Unremarkable. OTHER FINDINGS: None. IMPRESSION: Hepatomegaly, hepatic steatosis. Nonvisualization of findings on recent CT scan in the liver.
[2018-03-10 20:35] LABS: HEMOGLOBIN 13.1 g/dL (12.0-18.0); MEAN CORPUSCULAR HEMOGLOBIN 31.9 pg (27.0-31.0); MEAN CORPUSCULAR HGB CONC 33.6 g/dL (33.0-37.0); RBC 4.12 Mil/uL (4.40-5.90); RED CELL DISTRIBUTION WIDTH 12.8 % (11.5-14.5); WHITE BLOOD COUNT 3.3 K/uL (4.8-10.8)
[2018-03-10] MEDS ORDERED: Potassium Chloride 20 mEq ER Tab PO ONE (21:26)
[2018-03-11 00:12] LABS: BASO % 0.7 % (0.0-2.0); EOS # 0.1 K/uL (0.0-0.7); EOS % 1.6 % (0.0-4.0); HEMOGLOBIN 13.2 g/dL (12.0-18.0); LYMPH # 0.6 K/uL (1.0-4.3); LYMPH % 17.5 % (20.0-40.0); MEAN CELL VOLUME 94.3 fl (80.0-94.0); MEAN CORPUSCULAR HEMOGLOBIN 31.9 pg (27.0-31.0); MEAN CORPUSCULAR HGB CONC 33.8 g/dL (33.0-37.0); MEAN PLATELET VOLUME 8.7 fl (7.2-11.7); MONO # 0.3 K/uL (0.0-0.8); MONO % 10.4 % (0.0-10.0); NEUT # 2.3 K/uL (1.8-7.0); NEUT % 69.8 % (50.0-75.0); NRBC % 0.1 % (0.0-0.0); RBC 4.14 Mil/uL (4.40-5.90); RED CELL DISTRIBUTION WIDTH 12.6 % (11.5-14.5); WHITE BLOOD COUNT 3.3 K/uL (4.8-10.8)
[2018-03-11] MEDS: Lactated Ringer's 1,000 ML IV SCH ×3 (01:29→22:16)
[2018-03-11] MEDS: Pantoprazole 40 MG in Sodium Chloride 0.9% 100 ML IVPB SCH ×4 (03:00→13:52)
[2018-03-11 05:50] LABS: HEMOGLOBIN 12.9 g/dL (12.0-18.0); MEAN CELL VOLUME 94.8 fl (80.0-94.0); MEAN CORPUSCULAR HEMOGLOBIN 31.9 pg (27.0-31.0); MEAN CORPUSCULAR HGB CONC 33.6 g/dL (33.0-37.0); RBC 4.04 Mil/uL (4.40-5.90); RED CELL DISTRIBUTION WIDTH 12.6 % (11.5-14.5); WHITE BLOOD COUNT 2.7 K/uL (4.8-10.8)
[2018-03-11 05:53] LABS: INR 1.5; PROTHROMBIN TIME 16.7 Seconds (9.8-13.1)
[2018-03-11 05:55] LABS: PARTIAL THROMBOPLASTIN TIME 37.3 Seconds (25.6-37.1)
[2018-03-11 06:19] LABS: ALBUMIN 4.1 g/dL (3.5-5.0); ALT/SGPT 57 U/L (21-72); AST/SGOT 202 U/L (17-59); BLOOD UREA NITROGEN 3 mg/dl (9-20); CALCIUM 9.2 mg/dL (8.4-10.2); GFR NON-AFRICAN AMERICAN > 60; LIPASE 397 U/L (23-300)
--- NOTE | 2018-03-11 08:16 | CON ---
DATE: 03/10/2018 REFERRING DOCTOR: Dr. Cutler. REASON FOR CONSULTATION: Hematemesis. HISTORY OF PRESENT ILLNESS: This is a 28-year-old male, who has been admitted for epistaxis and some vomiting with bits of blood in it and some blood in the stool. The patient has some discomfort. No heartburn, no reflux, couple of days ago. Otherwise, no fevers, no chills, and no nausea or vomiting, currently lying in bed, in no apparent distress. PAST MEDICAL HISTORY: As above. PAST SURGICAL HISTORY: As above. MEDICATIONS: Have been reviewed. REVIEW OF SYSTEMS: All other systems have been reviewed and negative apart from the HPI. PHYSICAL EXAMINATION: VITAL SIGNS: Here in the hospital are grossly unremarkable. GENERAL: This is a pleasant young man, lying in bed comfortably, in no apparent distress. HEENT: Head, normocephalic and atraumatic. Eyes, pupils are equally reactive to light bilaterally. No conjunctival pallor or icterus. NECK: Supple. Normal range of motion. No lymphadenopathy appreciated. LUNGS: Coarse breath sounds bilaterally. HEART: S1 and S2. Regular rate and rhythm. No murmurs appreciated. ABDOMEN: Soft and nontender, bowel sounds present. No discomfort. No rebound. No guarding. RECTAL: Deferred. EXTREMITIES: Pulses present bilaterally. SKIN: Warm, dry, and intact. NEUROLOGIC: A and O x 3. LABORATORY DATA: All labs and relevant radiology have been reviewed. WBC is 3.8, platelet count 133, hemoglobin 13.2, stable. INR is 1.6. Total bilirubin is 2, ALT , AST with alk phos 213, amylase 55, lipase is 364. ASSESSMENT AND PLAN: This is a 28-year-old man with what looks like alcohol-related thrombocytopenia and questionable guaiac-positive stool. stable and the vitals are stable as well, nothing significant from thrombocytopenia. Recommend platelet transfusion, correcting INR, ultrasound of the liver, followup CT scan, proton pump inhibitor intravenously every 12 hours for now. Advance diet as tolerated. Wilfrid Padilla MD/ PhD [facility] # [id number]
[2018-03-11] MEDS: Potassium Chloride 20 mEq 100 ML IVPB SCH ×2 (08:22→11:27)
--- NOTE | 2018-03-11 08:45 | CP.PCM.PN ---
Subjective - Date & Time of Evaluation Date of Evaluation: 03/11/18 Time of Evaluation: 08:00 - Subjective Subjective: Pt seen and examined at bedside. Denies acute overnight events. Denies hematemasis or hematochezia. Reports hunger. Denies cp/sob/n/v Objective - Vital Signs/Intake and Output Vital Signs (last 24 hours): Temp Pulse Resp BP Pulse Ox 98.3 F 104 H 16 133/77 97 03/11/18 08:00 03/11/18 08:00 03/11/18 08:00 03/11/18 08:00 03/11/18 08:00 - Medications Medications: Current Medications Pantoprazole Sodium 40 mg/ (Sodium Chloride) 100 mls @ 20 mls/hr IVPB 5XD TITA Last Admin: 03/11/18 05:00 Dose: Not Given Octreotide Acetate 1,250 mcg/ (Sodium Chloride) 252.5 mls @ 10.1 mls/hr IV .Q24H TITA Last Admin: 03/11/18 00:02 Dose: 10.1 mls/hr Lactated Ringer's (Lactated Ringer's) 1,000 mls @ 125 mls/hr IV .Q8H TITA Last Admin: 03/11/18 01:29 Dose: 125 mls/hr Folic Acid 1 mg/ Sodium (Chloride) 100.2 mls @ 60 mls/hr IVPB DAILY TITA Last Admin: 03/11/18 08:38 Dose: 60 mls/hr Potassium Chloride (Potassium Chloride 20 Meq/100 Ml) 100 mls @ 50 mls/hr IVPB Q2 TITA Stop: 03/11/18 11:59 Last Admin: 03/11/18 08:22 Dose: 50 mls/hr Lactulose (Enulose) 20 gm PO DAILY TITA Last Admin: 03/10/18 12:59 Dose: 20 gm Ondansetron HCl (Zofran Inj) 4 mg IVP Q6H PRN PRN Reason: Nausea/Vomiting - Labs Labs: 03/11/18 04:30 03/11/18 04:30 PT 16.7 Seconds (9.8-13.1) H 03/11/18 04:30 INR 1.5 03/11/18 04:30 APTT 37.3 Seconds (25.6-37.1) H 03/11/18 04:30 - Constitutional Appears: Non-toxic - Eye Exam Eye Exam: EOMI - ENT Exam ENT Exam: Mucous Membranes Moist - Neck Exam Neck Exam: Full ROM - Respiratory Exam Respiratory Exam: Clear to Ausculation Bilateral, NORMAL BREATHING PATTERN. absent: Wheezes - Cardiovascular Exam Cardiovascular Exam: Tachycardia, REGULAR RHYTHM, +S1, +S2 - GI/Abdominal Exam GI & Abdominal Exam: Soft, Normal Bowel Sounds. absent: Tenderness - Neurological Exam Neurological Exam: Alert, Awake, CN II-XII Intact, Oriented x3 - Psychiatric Exam Psychiatric exam: Normal Affect, Normal Mood Assessment and Plan - Assessment and Plan (Free Text) Assessment: 28 year old male with PMHx of alcohol use disorder presented to [facility] ED with complaints of 7-10 episodes of bloody (bright red blood) emesis with clotting associated with one episode of bloody stool mixed with dark and bright red blood yesterday. Patient reports nose bleed and dizziness started at the same day. Patient is admitted for upper GI bleed and duodenitis. Plan: Upper GI bleed with duodenitis -Mild tachycardia -CT A/P showed lower thorax unremarkable. There is severe circumferential wall thickening involving duodenum with C loop consistent with duodenitis. -GI: Dr. Padilla -s/p Protonix 80 mg IVPB, Octreotide 50 mcg IV and Cefriaxone 1 gm IPVB -Octreotide infusion @50 mcg/hour -Continuous infusion of protonix @8mg/hr -IVFs LR @125 cc/hr -H&H 13.6/39.5 > 12.7/37.8 -Monitor symptoms -Bruning-Blatchford Bleeding Score: 2 points -f/u AM labs/bleeding Thrombocytopenia - 03/10/2018: 23 -s/p 1 unit transfusion - Manual platelet: 60 03/11/2018 History of alcohol abuse -AST:ALT 3:1 -monitoring for withdrawals: CIWA protocol -Librium Elevated liver enzymes -Likely secondary to alcohol use disorder -gallbladder US -hepatitis panel: negative Hyperammonemia -Mild, ammonia level 65 -AAO x3 -Likely secondary to GI bleed -f/u GI recommendation DVT prophylaxis -SCDs -encouraged ambulation Diet -clear liquid; will taper as tolerated Plan discussed with Dr. Oc Lorenzo MD PGY2
--- NOTE | 2018-03-11 10:32 | CP.CCUPN ---
<Di Figueroa - Last Filed: 03/11/18 10:32> CCU Subjective - Physician Review Subjective (Free Text): 03/11/18 This is 28 y/o M with PMH of alcohol use disorder admitted to ICU for evaluation and treatment of upper GI bleed. - Patient was seen and examined this morning at bedside, NAD. Patient reports no pain, no vomiting overnight but reported dark stool x2 overnight. Denies any palpitations, nausea, vomiting or diarrhea this morning. VS: Afebrile, HR 100s, BP stable 133/70, Spo2 >95% RA, RR 18 ROS: No other pertinent negs or positives on 10+ system review. 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 Abdo U/S: Hepatomegaly/Steatosis IMPRESSION/MAJOR PROBLEMS Upper GI bleed, improved Thrombocytopenia, improved Transaminitis, improved Elevated Coag Elevated Lipase Elevated ammonia, not encephalopathic, improved Alcohol use disorder Hypokalemia Tachycardia Plan: - Stable H/H, s/p 1 U plt and 2 U FFP, repeat CBC in afternoon (if stable, cleared by ICU) - C/w Thiamine, Folic acid, and Lactulose - C/w Protonix, IVF, NPO and Zofran PRN - Replete potassium as needed, elevated lipase possibly due to vomiting - Monitor mental status, or any withdrawal symptoms/CIWA, ammonia improved to normal - Follow up GI recommendations - Monitor VS Case discussed with Dr. Pool 03/11/18 10:15 CCU Objective - Vital Signs / Intake & Output Vital Signs (Last 4 hours): Vital Signs Temp Pulse Resp BP Pulse Ox 03/11/18 08:00 98.3 F 104 H 16 133/77 97 Intake and Output (Last 8hrs): Intake & Output 03/10/18 03/11/18 03/11/18 22:59 06:59 14:59 Intake Total 900 Output Total 400 Balance 500 Weight 178 lb 3 oz Intake: IV 500 Blood Product 400 Output: Urine 400 Urine, Voided 400 - Medications Active Medications: Active Medications Generic Name Dose Route Start Last Admin Trade Name Freq PRN Reason Stop Dose Admin Pantoprazole Sodium 40 mg/ 100 mls @ 20 mls/hr 03/09/18 22:30 03/11/18 09:40 Sodium Chloride IVPB 20 mls/hr 5XD TITA Administration 8 MG/HR Octreotide Acetate 1,250 mcg/ 252.5 mls @ 10.1 mls/hr 03/09/18 23:30 03/11/18 00:02 Sodium Chloride IV 10.1 mls/hr .Q24H TITA Administration 50 MCG/HR Lactated Ringer's 1,000 mls @ 125 mls/hr 03/10/18 01:00 03/11/18 01:29 Lactated Ringer's IV 125 mls/hr .Q8H TITA Administration Folic Acid 1 mg/ Sodium 100.2 mls @ 60 mls/hr 03/10/18 12:00 03/11/18 08:38 Chloride IVPB 60 mls/hr DAILY TITA Administration Potassium Chloride 100 mls @ 50 mls/hr 03/11/18 08:00 03/11/18 08:22 Potassium Chloride 20 Meq/100 Ml IVPB 03/11/18 11:59 50 mls/hr Q2 TITA Administration Lactulose 20 gm 03/10/18 13:00 03/10/18 12:59 Enulose PO 20 gm DAILY TITA Administration Ondansetron HCl 4 mg 03/10/18 00:53 Zofran Inj IVP Q6H PRN Nausea/Vomiting - Patient Studies Lab Studies: Microbiology Studies 03/10/18 01:07 Blood Culture - Preliminary Blood NO GROWTH AFTER 24 HOURS 03/10/18 00:37 Blood Culture - Preliminary Blood NO GROWTH AFTER 24 HOURS Lab Studies 03/11/18 03/11/18 03/11/18 Range/Units 04:30 04:30 04:30 WBC 2.7 L (4.8-10.8) K/uL RBC 4.04 L (4.40-5.90) Mil/uL Hgb 12.9 (12.0-18.0) g/dL Hct 38.3 (35.0-51.0) % MCV 94.8 H (80.0-94.0) fl MCH 31.9 H (27.0-31.0) pg MCHC 33.6 (33.0-37.0) g/dL RDW 12.6 (11.5-14.5) % Plt Count 29 L* (130-400) K/uL Manual Plt Count (130-400) K/uL MPV (7.2-11.7) fl Neut % (Auto) (50.0-75.0) % Lymph % (Auto) (20.0-40.0) % [place] % (Auto) (0.0-10.0) % Eos % (Auto) (0.0-4.0) % Baso % (Auto) (0.0-2.0) % Neut # (Auto) (1.8-7.0) K/uL Lymph # (Auto) (1.0-4.3) K/uL [place] # (Auto) (0.0-0.8) K/uL Eos # (Auto) (0.0-0.7) K/uL Baso # (Auto) (0.0-0.2) K/uL PT 16.7 H (9.8-13.1) Seconds INR 1.5 APTT 37.3 H (25.6-37.1) Seconds Sodium (132-148) mmol/l Potassium (3.6-5.0) MMOL/L Chloride (98-107) mmol/L Carbon Dioxide (22-30) mmol/L Anion Gap (10-20) BUN (9-20) mg/dl Creatinine (0.8-1.5) mg/dl Est GFR ( Amer) Est GFR (Non-Af Amer) Random Glucose (75-110) mg/dL Calcium (8.4-10.2) mg/dL Phosphorus (2.5-4.5) mg/dl Magnesium (1.6-2.3) MG/DL Total Bilirubin (0.2-1.3) mg/dl AST (17-59) U/L ALT (21-72) U/L Alkaline Phosphatase (38-126) U/L Ammonia 52 (16-60) umo/L Total Protein (6.3-8.2) G/DL Albumin (3.5-5.0) g/dL Globulin (2.2-3.9) gm/dL Albumin/Globulin Ratio (1.0-2.1) Lipase (23-300) U/L Hepatitis A IgM Ab (NEGATIVE) Hep Bs Antigen (NEGATIVE) Hep B Core IgM Ab (NEGATIVE) Hepatitis C Antibody (NEGATIVE) 03/11/18 03/11/18 03/10/18 Range/Units 04:30 00:05 20:05 WBC 3.3 L 3.3 L (4.8-10.8) K/uL RBC 4.14 L 4.12 L (4.40-5.90) Mil/uL Hgb 13.2 13.1 (12.0-18.0) g/dL Hct 39.0 39.1 (35.0-51.0) % MCV 94.3 H 95.0 H (80.0-94.0) fl MCH 31.9 H 31.9 H (27.0-31.0) pg MCHC 33.8 33.6 (33.0-37.0) g/dL RDW 12.6 12.8 (11.5-14.5) % Plt Count 31 L 33 L (130-400) K/uL Manual Plt Count 62 L (130-400) K/uL MPV 8.7 (7.2-11.7) fl Neut % (Auto) 69.8 (50.0-75.0) % Lymph % (Auto) 17.5 L (20.0-40.0) % [place] % (Auto) 10.4 H (0.0-10.0) % Eos % (Auto) 1.6 (0.0-4.0) % Baso % (Auto) 0.7 (0.0-2.0) % Neut # (Auto) 2.3 (1.8-7.0) K/uL Lymph # (Auto) 0.6 L (1.0-4.3) K/uL [place] # (Auto) 0.3 (0.0-0.8) K/uL Eos # (Auto) 0.1 (0.0-0.7) K/uL Baso # (Auto) 0.0 (0.0-0.2) K/uL PT (9.8-13.1) Seconds INR APTT (25.6-37.1) Seconds Sodium 141 (132-148) mmol/l Potassium 3.4 L (3.6-5.0) MMOL/L Chloride 101 (98-107) mmol/L Carbon Dioxide 25 (22-30) mmol/L Anion Gap 18 (10-20) BUN 3 L (9-20) mg/dl Creatinine 0.5 L (0.8-1.5) mg/dl Est GFR ( Amer) > 60 Est GFR (Non-Af Amer) > 60 Random Glucose 123 H (75-110) mg/dL Calcium 9.2 (8.4-10.2) mg/dL Phosphorus 1.5 L (2.5-4.5) mg/dl Magnesium 1.7 (1.6-2.3) MG/DL Total Bilirubin 2.2 H (0.2-1.3) mg/dl AST 202 H D (17-59) U/L ALT 57 (21-72) U/L Alkaline Phosphatase 140 H D (38-126) U/L Ammonia (16-60) umo/L Total Protein 8.3 H (6.3-8.2) G/DL Albumin 4.1 (3.5-5.0) g/dL Globulin 4.2 H (2.2-3.9) gm/dL Albumin/Globulin Ratio 1.0 (1.0-2.1) Lipase 397 H (23-300) U/L Hepatitis A IgM Ab (NEGATIVE) Hep Bs Antigen (NEGATIVE) Hep B Core IgM Ab (NEGATIVE) Hepatitis C Antibody (NEGATIVE) 03/10/18 03/10/18 03/10/18 Range/Units 16:07 12:45 04:20 WBC 3.6 L (4.8-10.8) K/uL RBC 4.06 L (4.40-5.90) Mil/uL Hgb 13.0 (12.0-18.0) g/dL Hct 38.4 (35.0-51.0) % MCV 94.5 H (80.0-94.0) fl MCH 32.1 H (27.0-31.0) pg MCHC 33.9 (33.0-37.0) g/dL RDW 12.5 (11.5-14.5) % Plt Count 39 L (130-400) K/uL Manual Plt Count (130-400) K/uL MPV 8.9 (7.2-11.7) fl Neut % (Auto) 75.7 H (50.0-75.0) % Lymph % (Auto) 14.6 L (20.0-40.0) % [place] % (Auto) 8.4 (0.0-10.0) % Eos % (Auto) 0.9 (0.0-4.0) % Baso % (Auto) 0.4 (0.0-2.0) % Neut # (Auto) 2.7 (1.8-7.0) K/uL Lymph # (Auto) 0.5 L (1.0-4.3) K/uL [place] # (Auto) 0.3 (0.0-0.8) K/uL Eos # (Auto) 0.0 (0.0-0.7) K/uL Baso # (Auto) 0.0 (0.0-0.2) K/uL PT (9.8-13.1) Seconds INR APTT (25.6-37.1) Seconds Sodium (132-148) mmol/l Potassium (3.6-5.0) MMOL/L Chloride (98-107) mmol/L Carbon Dioxide (22-30) mmol/L Anion Gap (10-20) BUN (9-20) mg/dl Creatinine (0.8-1.5) mg/dl Est GFR ( Amer) Est GFR (Non-Af Amer) Random Glucose (75-110) mg/dL Calcium (8.4-10.2) mg/dL Phosphorus 1.9 L (2.5-4.5) mg/dl Magnesium 1.7 (1.6-2.3) MG/DL Total Bilirubin (0.2-1.3) mg/dl AST (17-59) U/L ALT (21-72) U/L Alkaline Phosphatase (38-126) U/L Ammonia (16-60) umo/L Total Protein (6.3-8.2) G/DL Albumin (3.5-5.0) g/dL Globulin (2.2-3.9) gm/dL Albumin/Globulin Ratio (1.0-2.1) Lipase (23-300) U/L Hepatitis A IgM Ab Negative (NEGATIVE) Hep Bs Antigen Negative (NEGATIVE) Hep B Core IgM Ab Negative (NEGATIVE) Hepatitis C Antibody Negative (NEGATIVE) Laboratory Results - last 24 hr 03/10/18 03/10/18 03/10/18 04:20 12:45 16:07 WBC 3.6 L RBC 4.06 L Hgb 13.0 Hct 38.4 MCV 94.5 H MCH 32.1 H MCHC 33.9 RDW 12.5 Plt Count 39 L Manual Plt Count MPV 8.9 Neut % (Auto) 75.7 H Lymph % (Auto) 14.6 L [place] % (Auto) 8.4 Eos % (Auto) 0.9 Baso % (Auto) 0.4 Neut # (Auto) 2.7 Lymph # (Auto) 0.5 L [place] # (Auto) 0.3 Eos # (Auto) 0.0 Baso # (Auto) 0.0 PT INR APTT Sodium Potassium Chloride Carbon Dioxide Anion Gap BUN Creatinine Est GFR ( Amer) Est GFR (Non-Af Amer) Random Glucose Calcium Phosphorus 1.9 L Magnesium 1.7 Total Bilirubin AST ALT Alkaline Phosphatase Ammonia Total Protein Albumin Globulin Albumin/Globulin Ratio Lipase Hepatitis A IgM Ab Negative Hep Bs Antigen Negative Hep B Core IgM Ab Negative Hepatitis C Antibody Negative 03/10/18 03/11/18 03/11/18 20:05 00:05 04:30 WBC 3.3 L 3.3 L RBC 4.12 L 4.14 L Hgb 13.1 13.2 Hct 39.1 39.0 MCV 95.0 H 94.3 H MCH 31.9 H 31.9 H MCHC 33.6 33.8 RDW 12.8 12.6 Plt Count 33 L 31 L Manual Plt Count 62 L MPV 8.7 Neut % (Auto) 69.8 Lymph % (Auto) 17.5 L [place] % (Auto) 10.4 H Eos % (Auto) 1.6 Baso % (Auto) 0.7 Neut # (Auto) 2.3 Lymph # (Auto) 0.6 L [place] # (Auto) 0.3 Eos # (Auto) 0.1 Baso # (Auto) 0.0 PT INR APTT Sodium 141 Potassium 3.4 L Chloride 101 Carbon Dioxide 25 Anion Gap 18 BUN 3 L Creatinine 0.5 L Est GFR ( Amer) > 60 Est GFR (Non-Af Amer) > 60 Random Glucose 123 H Calcium 9.2 Phosphorus 1.5 L Magnesium 1.7 Total Bilirubin 2.2 H AST 202 H D ALT 57 Alkaline Phosphatase 140 H D Ammonia Total Protein 8.3 H Albumin 4.1 Globulin 4.2 H Albumin/Globulin Ratio 1.0 Lipase 397 H Hepatitis A IgM Ab Hep Bs Antigen Hep B Core IgM Ab Hepatitis C Antibody 03/11/18 03/11/18 03/11/18 04:30 04:30 04:30 WBC 2.7 L RBC 4.04 L Hgb 12.9 Hct 38.3 MCV 94.8 H MCH 31.9 H MCHC 33.6 RDW 12.6 Plt Count 29 L* Manual Plt Count MPV Neut % (Auto) Lymph % (Auto) [place] % (Auto) Eos % (Auto) Baso % (Auto) Neut # (Auto) Lymph # (Auto) [place] # (Auto) Eos # (Auto) Baso # (Auto) PT 16.7 H INR 1.5 APTT 37.3 H Sodium Potassium Chloride Carbon Dioxide Anion Gap BUN Creatinine Est GFR ( Amer) Est GFR (Non-Af Amer) Random Glucose Calcium Phosphorus Magnesium Total Bilirubin AST ALT Alkaline Phosphatase Ammonia 52 Total Protein Albumin Globulin Albumin/Globulin Ratio Lipase Hepatitis A IgM Ab Hep Bs Antigen Hep B Core IgM Ab Hepatitis C Antibody Critical Care Progress Note - Nutrition Nutrition: Nutrition Category Date Time Status NPO Diet [DIET] Diets 03/09/18 Breakfast Active <Ray Pool - Last Filed: 03/11/18 14:08> CCU Subjective - Physician Review Subjective (Free Text): Attestation: Patient seen and examined at the bedside with Resident Dr. Roseline Figueroa; and I agree with his outline of plans and management documented above and below, reflecting my review of all applicable clinical data, and participation in the care of the patient throughout the day in ICU; today, March 11, 2018.
[2018-03-11 10:55] LABS: BASO % 0.7 % (0.0-2.0); EOS # 0.1 K/uL (0.0-0.7); EOS % 2.3 % (0.0-4.0); HEMOGLOBIN 12.7 g/dL (12.0-18.0); LYMPH # 0.5 K/uL (1.0-4.3); MEAN CELL VOLUME 95.9 fl (80.0-94.0); MEAN CORPUSCULAR HEMOGLOBIN 32.1 pg (27.0-31.0); MEAN CORPUSCULAR HGB CONC 33.4 g/dL (33.0-37.0); MEAN PLATELET VOLUME 9.4 fl (7.2-11.7); MONO # 0.3 K/uL (0.0-0.8); MONO % 11.1 % (0.0-10.0); NEUT # 1.9 K/uL (1.8-7.0); NEUT % 66.9 % (50.0-75.0); RBC 3.95 Mil/uL (4.40-5.90); RED CELL DISTRIBUTION WIDTH 12.7 % (11.5-14.5); WHITE BLOOD COUNT 2.8 K/uL (4.8-10.8)
--- NOTE | 2018-03-11 14:50 | CP.PCM.PN ---
Subjective - Date & Time of Evaluation Date of Evaluation: 03/11/18 Time of Evaluation: 14:49 - Subjective Subjective: no overrnight events Objective - Vital Signs/Intake and Output Vital Signs (last 24 hours): Temp Pulse Resp BP Pulse Ox 98.4 F 102 H 13 132/75 97 03/11/18 12:00 03/11/18 12:00 03/11/18 12:00 03/11/18 12:00 03/11/18 12:00 Intake and Output: 03/11/18 03/11/18 06:59 18:59 Intake Total 1130 Balance 1130 - Medications Medications: Current Medications Pantoprazole Sodium 40 mg/ (Sodium Chloride) 100 mls @ 20 mls/hr IVPB 5XD TITA Last Admin: 03/11/18 13:52 Dose: 20 mls/hr Octreotide Acetate 1,250 mcg/ (Sodium Chloride) 252.5 mls @ 10.1 mls/hr IV .Q24H TITA Last Admin: 03/11/18 00:02 Dose: 10.1 mls/hr Lactated Ringer's (Lactated Ringer's) 1,000 mls @ 125 mls/hr IV .Q8H TITA Last Admin: 03/11/18 11:27 Dose: 125 mls/hr Folic Acid 1 mg/ Sodium (Chloride) 100.2 mls @ 60 mls/hr IVPB DAILY TITA Last Admin: 03/11/18 08:38 Dose: 60 mls/hr Lactulose (Enulose) 20 gm PO DAILY [facility] Last Admin: 03/11/18 13:52 Dose: 20 gm Ondansetron HCl (Zofran Inj) 4 mg IVP Q6H PRN PRN Reason: Nausea/Vomiting - Labs Labs: 03/11/18 10:45 03/11/18 04:30 PT 16.7 Seconds (9.8-13.1) H 03/11/18 04:30 INR 1.5 03/11/18 04:30 APTT 37.3 Seconds (25.6-37.1) H 03/11/18 04:30 - Head Exam Head Exam: NORMOCEPHALIC - Respiratory Exam Respiratory Exam: Clear to Ausculation Bilateral, NORMAL BREATHING PATTERN - Cardiovascular Exam Cardiovascular Exam: REGULAR RHYTHM - GI/Abdominal Exam GI & Abdominal Exam: Soft, Normal Bowel Sounds Assessment and Plan - Assessment and Plan (Free Text) Assessment: 28 yo male with pancytopenia no bleeding adat and dc home is posisble
[2018-03-12 05:45] VITALS: BP 119/79; PULSE 84; RESP 18; TEMP 98.5; O2SAT 100
[2018-03-12 07:27] LABS: HEMOGLOBIN 13.4 g/dL (12.0-18.0); MEAN CELL VOLUME 96.2 fl (80.0-94.0); MEAN CORPUSCULAR HEMOGLOBIN 32.3 pg (27.0-31.0); MEAN CORPUSCULAR HGB CONC 33.5 g/dL (33.0-37.0); RBC 4.14 Mil/uL (4.40-5.90); RED CELL DISTRIBUTION WIDTH 12.5 % (11.5-14.5)
[2018-03-12 07:38] LABS: ALB/GLOB RATIO 0.9 (1.0-2.1); ALBUMIN 4.1 g/dL (3.5-5.0); ALT/SGPT 67 U/L (21-72); AST/SGOT 203 U/L (17-59); BLOOD UREA NITROGEN 3 mg/dl (9-20); CALCIUM 9.5 mg/dL (8.4-10.2); GFR NON-AFRICAN AMERICAN > 60
[2018-03-12] MEDS ORDERED: Pantoprazole 40 mg EC Tab PO SCH (09:00)
--- NOTE | 2018-03-12 09:44 | CP.PCM.DIS ---
<Felicitas Pineda Wen - Last Filed: 03/12/18 12:10> Provider - Provider Date of Admission: 03/09/18 23:57 Attending physician: Adalgisa Galvan MD Consults: 03/09/18 23:52 Gastroenterology Consult Stat Comment: Consulting Provider: Wilfrid Padilla Consulting Physician: Wilfrid Padilla Reason for Consult: GI bleed 03/10/18 08:00 Pastoral Care Referral Routine Comment: Physician Instructions: Reason For Exam: admission Social Work Referral Routine Comment: admission Physician Instructions: Reason For Exam: admission 03/10/18 09:00 Case Management Referral Routine Comment: Physician Instructions: Reason For Exam: admission 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 recommended EGD as ou tpatient, and follow up with GI (2) Thrombocytopenia Status: Chronic Comment: improved after platelet transfusion (3) Alcohol abuse Status: Acute (4) Alcohol abuse Status: Chronic Comment: no evidence of withdrawal. Will dc on taper dose of librium Hospital Course - Lab Results Lab Results: Micro Results 03/10/18 01:07 Blood Blood Culture - Preliminary NO GROWTH AFTER 48 HOURS 03/10/18 00:37 Blood Blood Culture - Preliminary NO GROWTH AFTER 48 HOURS 03/10/18 05:00 Nose MRSA Culture (Admit) - Final MRSA NOT DETECTED Most Recent Lab Values WBC 3.0 K/uL (4.8-10.8) L 03/12/18 05:30 RBC 4.14 Mil/uL (4.40-5.90) L 03/12/18 05:30 Hgb 13.4 g/dL (12.0-18.0) 03/12/18 05:30 Hct 39.9 % (35.0-51.0) 03/12/18 05:30 MCV 96.2 fl (80.0-94.0) H 03/12/18 05:30 MCH 32.3 pg (27.0-31.0) H 03/12/18 05:30 MCHC 33.5 g/dL (33.0-37.0) 03/12/18 05:30 RDW 12.5 % (11.5-14.5) 03/12/18 05:30 Plt Count 51 K/uL (130-400) L D 03/12/18 05:30 Manual Plt Count 51 K/uL (130-400) L 03/11/18 10:45 MPV 9.4 fl (7.2-11.7) 03/11/18 10:45 Neut % (Auto) 66.9 % (50.0-75.0) 03/11/18 10:45 Lymph % (Auto) 19.0 % (20.0-40.0) L 03/11/18 10:45 [place] % (Auto) 11.1 % (0.0-10.0) H 03/11/18 10:45 Eos % (Auto) 2.3 % (0.0-4.0) 03/11/18 10:45 Baso % (Auto) 0.7 % (0.0-2.0) 03/11/18 10:45 Neut # (Auto) 1.9 K/uL (1.8-7.0) 03/11/18 10:45 Lymph # (Auto) 0.5 K/uL (1.0-4.3) L 03/11/18 10:45 [place] # (Auto) 0.3 K/uL (0.0-0.8) 03/11/18 10:45 Eos # (Auto) 0.1 K/uL (0.0-0.7) 03/11/18 10:45 Baso # (Auto) 0.0 K/uL (0.0-0.2) 03/11/18 10:45 PT 16.7 Seconds (9.8-13.1) H 03/11/18 04:30 INR 1.5 03/11/18 04:30 APTT 37.3 Seconds (25.6-37.1) H 03/11/18 04:30 pO2 45 mm/Hg (30-55) 03/09/18 23:17 VBG pH 7.47 (7.32-7.43) H 03/09/18 23:17 VBG pCO2 34 mmHg (40-60) L 03/09/18 23:17 VBG HCO3 25.7 mmol/L 03/09/18 23:17 VBG Total CO2 25.7 mmol/L (22-28) 03/09/18 23:17 VBG O2 Sat (Calc) 85.3 % (40-65) H 03/09/18 23:17 VBG Base Excess 1.5 mmol/L (0.0-2.0) 03/09/18 23:17 VBG Potassium 2.9 mmol/L (3.6-5.2) L 03/09/18 23:17 Sodium 133.0 mmol/L (132-148) 03/09/18 23:17 Chloride 92.0 mmol/L (98-107) L 03/09/18 23:17 Glucose 126 mg/dL (75-110) H 03/09/18 23:17 Lactate 1.5 mmol/L (0.7-2.1) 03/09/18 23:17 FiO2 21.0 % 03/09/18 23:17 Sodium 142 mmol/l (132-148) 03/12/18 05:30 Potassium 3.9 MMOL/L (3.6-5.0) 03/12/18 05:30 Chloride 104 mmol/L (98-107) 03/12/18 05:30 Carbon Dioxide 27 mmol/L (22-30) 03/12/18 05:30 Anion Gap 15 (10-20) 03/12/18 05:30 BUN 3 mg/dl (9-20) L 03/12/18 05:30 Creatinine 0.5 mg/dl (0.8-1.5) L 03/12/18 05:30 Est GFR ( Amer) > 60 03/12/18 05:30 Est GFR (Non-Af Amer) > 60 03/12/18 05:30 Random Glucose 112 mg/dL (75-110) H 03/12/18 05:30 Calcium 9.5 mg/dL (8.4-10.2) 03/12/18 05:30 Phosphorus 1.5 mg/dl (2.5-4.5) L 03/11/18 04:30 Magnesium 1.7 MG/DL (1.6-2.3) 03/11/18 04:30 Total Bilirubin 2.0 mg/dl (0.2-1.3) H 03/12/18 05:30 AST 203 U/L (17-59) H 03/12/18 05:30 ALT 67 U/L (21-72) 03/12/18 05:30 Alkaline Phosphatase 128 U/L (38-126) H 03/12/18 05:30 Ammonia 52 umo/L (16-60) 03/11/18 04:30 Troponin I 0.0140 ng/mL (0.00-0.120) 03/09/18 20:49 Total Protein 8.4 G/DL (6.3-8.2) H 03/12/18 05:30 Albumin 4.1 g/dL (3.5-5.0) 03/12/18 05:30 Globulin 4.4 gm/dL (2.2-3.9) H 03/12/18 05:30 Albumin/Globulin Ratio 0.9 (1.0-2.1) L 03/12/18 05:30 Lipase 397 U/L (23-300) H 03/11/18 04:30 Venous Blood Potassium 2.9 mmol/L (3.6-5.2) L 03/09/18 23:17 Stool Occult Blood Positive (NEGATIVE) H 03/09/18 21:00 Alcohol, Quantitative < 10 mg/dl (0-10) 03/09/18 20:49 Hepatitis A IgM Ab Negative (NEGATIVE) 03/10/18 04:20 Hep Bs Antigen Negative (NEGATIVE) 03/10/18 04:20 Hep B Core IgM Ab Negative (NEGATIVE) 03/10/18 04:20 Hepatitis C Antibody Negative (NEGATIVE) 03/10/18 04:20 Blood Type O POSITIVE 03/09/18 20:49 Blood Type Confirm O POSITIVE 03/09/18 21:44 Antibody Screen Negative 03/09/18 20:49 BBK History Checked No verified bt 03/09/18 20:49 - Hospital Course Hospital Course: 28 year old male with PMHx of alcohol use disorder presented to [facility] ED with complaints of 7-10 episodes of bloody (bright red blood) emesis with clotting associated with one episode of bloody stool mixed with dark and bright red blood yesterday. Patient reported nose bleed and dizziness started at the same day. Patient is admitted for upper GI bleed and duodenitis. On admission noted thrombocytopenia, abnormal coagulation panel, and elevated AST. However hemoglobin was stable WNL. Patient received 2 units of FFP, and 1 unit of platelets. Seen, and evaluated by GI on admission. No intervention recommended on admission. Cleared by GI for discharged. No evidence of active bleeding at this time. Patient seen, and examined. Denies any complains at this time. Walking without complains. Had a brown bowel movement this morning as per nurse report. Patient was informed that he needs f/u as outpatient with a PMD, and GI for possible EGD. Stable for DC home on PPI, and vitamins. - Date & Time of H&P Date of H&P: 03/10/18 Time of H&P: 01:00 Discharge Exam - Head Exam Head Exam: NORMOCEPHALIC - Eye Exam Eye Exam: Normal appearance - ENT Exam ENT Exam: Mucous Membranes Moist - Respiratory Exam Respiratory Exam: Clear to PA & Lateral, NORMAL BREATHING PATTERN - Cardiovascular Exam Cardiovascular Exam: REGULAR RHYTHM, +S1, +S2 - GI/Abdominal Exam GI & Abdominal Exam: Normal Bowel Sounds, Soft. absent: Distended, Guarding, Rebound, Rigid, Tenderness - Extremities Exam Extremities exam: normal inspection - Back Exam Back exam: NORMAL INSPECTION. absent: CVA tenderness (L), CVA tenderness (R) - Neurological Exam Neurological exam: Alert, Oriented x3 Discharge Plan - Discharge Medications Prescriptions: chlordiazePOXIDE [Librium] 10 mg PO Q6 #10 cap Multivitamins [Hexavitamin] 1 tab PO DAILY 30 Days #30 tab Omeprazole 40 mg PO DAILY 30 Days #30 capsule.dr - Follow Up Plan Condition: IMPROVED Disposition: HOME/ ROUTINE Patient education suggested?: Yes Instructions: Gastrointestinal Bleeding (DC), Gastrointestinal Bleeding (GEN) Additional Instructions: F/u at [facility] in 1 week. Call primary MD or go back to ER for recurrent bloody stool and bloody vomit. [facility] [place] [[facility]] Wilfrid Padilla MD, PhD [Staff Provider] - <Mary Rivas - Last Filed: 03/12/18 14:18> Provider - Provider Date of Admission: 03/09/18 23:57 Attending physician: Adalgisa Galvan MD Consults: 03/09/18 23:52 Gastroenterology Consult Stat Comment: Consulting Provider: Wilfrid Padilla Consulting Physician: Wilfrid Padilla Reason for Consult: GI bleed 03/10/18 08:00 Pastoral Care Referral Routine Comment: Physician Instructions: Reason For Exam: admission Social Work Referral Routine Comment: admission Physician Instructions: Reason For Exam: admission 03/10/18 09:00 Case Management Referral Routine Comment: Physician Instructions: Reason For Exam: admission Reason for Referral: [facility] Course - Lab Results Lab Results: Micro Results 03/10/18 01:07 Blood Blood Culture - Preliminary NO GROWTH AFTER 48 HOURS 03/10/18 00:37 Blood Blood Culture - Preliminary NO GROWTH AFTER 48 HOURS 03/10/18 05:00 Nose MRSA Culture (Admit) - Final MRSA NOT DETECTED Most Recent Lab Values WBC 3.0 K/uL (4.8-10.8) L 03/12/18 05:30 RBC 4.14 Mil/uL (4.40-5.90) L 03/12/18 05:30 Hgb 13.4 g/dL (12.0-18.0) 03/12/18 05:30 Hct 39.9 % (35.0-51.0) 03/12/18 05:30 MCV 96.2 fl (80.0-94.0) H 03/12/18 05:30 MCH 32.3 pg (27.0-31.0) H 03/12/18 05:30 MCHC 33.5 g/dL (33.0-37.0) 03/12/18 05:30 RDW 12.5 % (11.5-14.5) 03/12/18 05:30 Plt Count 51 K/uL (130-400) L D 03/12/18 05:30 Manual Plt Count 51 K/uL (130-400) L 03/11/18 10:45 MPV 9.4 fl (7.2-11.7) 03/11/18 10:45 Neut % (Auto) 66.9 % (50.0-75.0) 03/11/18 10:45 Lymph % (Auto) 19.0 % (20.0-40.0) L 03/11/18 10:45 [place] % (Auto) 11.1 % (0.0-10.0) H 03/11/18 10:45 Eos % (Auto) 2.3 % (0.0-4.0) 03/11/18 10:45 Baso % (Auto) 0.7 % (0.0-2.0) 03/11/18 10:45 Neut # (Auto) 1.9 K/uL (1.8-7.0) 03/11/18 10:45 Lymph # (Auto) 0.5 K/uL (1.0-4.3) L 03/11/18 10:45 [place] # (Auto) 0.3 K/uL (0.0-0.8) 03/11/18 10:45 Eos # (Auto) 0.1 K/uL (0.0-0.7) 03/11/18 10:45 Baso # (Auto) 0.0 K/uL (0.0-0.2) 03/11/18 10:45 PT 16.7 Seconds (9.8-13.1) H 03/11/18 04:30 INR 1.5 03/11/18 04:30 APTT 37.3 Seconds (25.6-37.1) H 03/11/18 04:30 pO2 45 mm/Hg (30-55) 03/09/18 23:17 VBG pH 7.47 (7.32-7.43) H 03/09/18 23:17 VBG pCO2 34 mmHg (40-60) L 03/09/18 23:17 VBG HCO3 25.7 mmol/L 03/09/18 23:17 VBG Total CO2 25.7 mmol/L (22-28) 03/09/18 23:17 VBG O2 Sat (Calc) 85.3 % (40-65) H 03/09/18 23:17 VBG Base Excess 1.5 mmol/L (0.0-2.0) 03/09/18 23:17 VBG Potassium 2.9 mmol/L (3.6-5.2) L 03/09/18 23:17 Sodium 133.0 mmol/L (132-148) 03/09/18 23:17 Chloride 92.0 mmol/L (98-107) L 03/09/18 23:17 Glucose 126 mg/dL (75-110) H 03/09/18 23:17 Lactate 1.5 mmol/L (0.7-2.1) 03/09/18 23:17 FiO2 21.0 % 03/09/18 23:17 Sodium 142 mmol/l (132-148) 03/12/18 05:30 Potassium 3.9 MMOL/L (3.6-5.0) 03/12/18 05:30 Chloride 104 mmol/L (98-107) 03/12/18 05:30 Carbon Dioxide 27 mmol/L (22-30) 03/12/18 05:30 Anion Gap 15 (10-20) 03/12/18 05:30 BUN 3 mg/dl (9-20) L 03/12/18 05:30 Creatinine 0.5 mg/dl (0.8-1.5) L 03/12/18 05:30 Est GFR ( Amer) > 60 03/12/18 05:30 Est GFR (Non-Af Amer) > 60 03/12/18 05:30 Random Glucose 112 mg/dL (75-110) H 03/12/18 05:30 Calcium 9.5 mg/dL (8.4-10.2) 03/12/18 05:30 Phosphorus 1.5 mg/dl (2.5-4.5) L 03/11/18 04:30 Magnesium 1.7 MG/DL (1.6-2.3) 03/11/18 04:30 Total Bilirubin 2.0 mg/dl (0.2-1.3) H 03/12/18 05:30 AST 203 U/L (17-59) H 03/12/18 05:30 ALT 67 U/L (21-72) 03/12/18 05:30 Alkaline Phosphatase 128 U/L (38-126) H 03/12/18 05:30 Ammonia 52 umo/L (16-60) 03/11/18 04:30 Troponin I 0.0140 ng/mL (0.00-0.120) 03/09/18 20:49 Total Protein 8.4 G/DL (6.3-8.2) H 03/12/18 05:30 Albumin 4.1 g/dL (3.5-5.0) 03/12/18 05:30 Globulin 4.4 gm/dL (2.2-3.9) H 03/12/18 05:30 Albumin/Globulin Ratio 0.9 (1.0-2.1) L 03/12/18 05:30 Lipase 397 U/L (23-300) H 03/11/18 04:30 Venous Blood Potassium 2.9 mmol/L (3.6-5.2) L 03/09/18 23:17 Stool Occult Blood Positive (NEGATIVE) H 03/09/18 21:00 Alcohol, Quantitative < 10 mg/dl (0-10) 03/09/18 20:49 Hepatitis A IgM Ab Negative (NEGATIVE) 03/10/18 04:20 Hep Bs Antigen Negative (NEGATIVE) 03/10/18 04:20 Hep B Core IgM Ab Negative (NEGATIVE) 03/10/18 04:20 Hepatitis C Antibody Negative (NEGATIVE) 03/10/18 04:20 Blood Type O POSITIVE 03/09/18 20:49 Blood Type Confirm O POSITIVE 03/09/18 21:44 Antibody Screen Negative 03/09/18 20:49 BBK History Checked No verified bt 03/09/18 20:49 Attending/Attestation - Attestation I have personally seen and examined this patient.: Yes I have fully participated in the care of the patient.: Yes I have reviewed all pertinent clinical information, including history, physical exam and plan: Yes Notes (Text): Diagnoses: Upper GI Bleed likely due to Alcohol Gastritis Pancytopenia likely due to Bone Marrow Suppression from Alcohol Alcohol Abuse Transaminitis due to Alcohol - H/H remained stable -Pt was transfused Platelet and FFP - Pt ambulatory - cont PPI - no ASA, NSAIDs - counseled to d/c ETOH 03/12/18 14:18
== END 2018-03-12 10:20 | disposition home or self-care (01) | DRG 241 ==
LOC: H.ER 18:56 → H.ERHOLD 23:57 → H.ICU/CCU 03-10 01:15
PROVIDERS: ADMIT Internal Medicine; ATTEND Internal Medicine
PROC: 30233K1 Transfusion of Nonautologous Frozen Plasma into Peripheral Vein, Percutaneous Approach (ICD-10-PCS; principal; 2018-03-10)
DX: K29.20 Alcoholic gastritis without bleeding (principal); D61.818 Other pancytopenia; K85.90 Acute pancreatitis without necrosis or infection, unspecified; K76.0 Fatty (change of) liver, not elsewhere classified; K29.81 Duodenitis with bleeding; K42.9 Umbilical hernia without obstruction or gangrene; R04.0 Epistaxis; F10.10 Alcohol abuse, uncomplicated